=== PATIENT | male | born 1950 | race Caucasian/White ===

== ENCOUNTER 2023-10-18 07:19 | Emergency (ER) | payer MEDICAID ==
[~2023-10-18] VITALS: Ht 170.2 cm; Wt 67.2 kg
[~2023-10-18 07:19] MED LIST: NO HOME MEDS
[2023-10-18] MEDS ORDERED: DOXY150T3 PO (07:53)
[2023-10-18] MEDS: DOXYCYCLINE 100MG CAPSULE PO STA (08:02)
[2023-10-18] MEDS: ketorolac tromethamine 15mg/ml inj. IM ONE (08:08)
[2023-10-18 08:22] VITALS: BP 112/89; PULSE 63; RESP 14; TEMP 97.9; O2SAT 98
== END 2023-10-18 08:26 | disposition home or self-care (01) ==
LOC: ER 07:19
DX: S70.362A Insect bite (nonvenomous), left thigh, initial encounter (principal); L03.116 Cellulitis of left lower limb; F17.210 Nicotine dependence, cigarettes, uncomplicated; Z79.2 Long term (current) use of antibiotics; Z98.890 Other specified postprocedural states; W57.XXXA Bitten or stung by nonvenomous insect and other nonvenomous arthropods, initial encounter; Y93.89 Activity, other specified; Y92.89 Other specified places as the place of occurrence of the external cause; Y99.8 Other external cause status
CPT/HCPCS: 96372; 99283; J1885